=== PATIENT | male | born 1980 | race Two or more races ===

== ENCOUNTER 2022-09-22 12:06 | Emergency (ER) | payer OTHER ==
[~2022-09-22] VITALS: Ht 175.3 cm; Wt 72.6 kg
== END 2022-09-22 18:57 | disposition home or self-care (01) ==
LOC: ER 12:06
DX: B34.9 Viral infection, unspecified (principal); R53.81 Other malaise; Z20.822 Contact with and (suspected) exposure to COVID-19

== ENCOUNTER 2023-05-01 10:37 | Emergency (ER) | payer OTHER ==
[~2023-05-01] VITALS: Ht 175.3 cm; Wt 72.6 kg
[2023-05-01] MEDS ORDERED: MORPHINE SULFATE 4 MG/ML CARTRIDGE IV ONE (11:45)
[2023-05-01] MEDS ORDERED: DEXAMETHASONE SODIUM PHOSP/PF 10 MG/ML VIAL IJ ONE (11:45)
[2023-05-01] MEDS ORDERED: MEPERIDINE HCL 25 MG/ML AMPUL IM ONE (12:15)
== END 2023-05-01 12:17 | disposition home or self-care (01) ==
LOC: ER 10:38
DX: M25.512 Pain in left shoulder (principal); M71.9 Bursopathy, unspecified

== ENCOUNTER 2023-05-04 17:25 | Emergency (ER) | payer OTHER ==
[~2023-05-04] VITALS: Ht 175.3 cm; Wt 72.6 kg
== END 2023-05-04 18:33 | disposition home or self-care (01) ==
LOC: ER 17:25
DX: M71.9 Bursopathy, unspecified (principal)

== ENCOUNTER 2024-01-02 20:21 | Emergency (ER) | payer OTHER ==
[~2024-01-02] VITALS: Ht 175.3 cm; Wt 72.6 kg
[2024-01-02] MEDS ORDERED: KETOROLAC TROMETHAMINE 60 MG VIAL IM ONE (22:45)
[2024-01-02] MEDS ORDERED: DEXAMETHASONE SODIUM PHOSPHATE 4 MG/ML VIAL IM ONE (22:45)
== END 2024-01-02 23:47 | disposition home or self-care (01) ==
LOC: ER 20:23
DX: M25.561 Pain in right knee (principal)

== ENCOUNTER 2025-02-10 11:42 | Emergency (ER) | payer OTHER ==
[~2025-02-10] VITALS: Ht 175.3 cm; Wt 74.8 kg
[2025-02-10] MEDS ORDERED: KETOROLAC TROMETHAMINE 30 MG VIAL IM STA (13:16)
[2025-02-10] MEDS ORDERED: KETOROLAC TROMETHAMINE 30 MG VIAL ONE (15:35)
[2025-02-10] MEDS ORDERED: ZIPSOR25 MG PO (15:45)
== END 2025-02-10 18:51 | disposition home or self-care (01) ==
LOC: ER 11:43
DX: S90.02XA Contusion of left ankle, initial encounter (principal); X58.XXXA Exposure to other specified factors, initial encounter; Y93.89 Activity, other specified; Y92.89 Other specified places as the place of occurrence of the external cause; Y99.9 Unspecified external cause status; M77.32 Calcaneal spur, left foot